=== PATIENT | male | born 1985 | race Caucasian/White ===

== ENCOUNTER 2020-08-12 16:51 | Inpatient (IN) | payer OTHER ==
[~2020-08-12] VITALS: Ht 180.3 cm; Wt 65.0 kg
[2020-08-12] MEDS ORDERED: ACETAMINOPHEN 325 MG TABLET PO PRN (17:15)
[2020-08-12] MEDS ORDERED: MAGNESIUM HYDROXIDE SUSPENSION 30 ML UDCUP PO PRN (17:15)
[2020-08-12 18:48] LABS: COVID AG,FIA SOURCE NASOPHARYNGEAL
[2020-08-12 19:41] LABS: ANION GAP 10 mmol/L (8-16); CALCIUM, TOTAL 9.1 mg/dL (8.8-10.5); CARBON DIOXIDE 28 mmol/L (22-29); CHLORIDE 106 mmol/L (98-107); CREATININE 1.33 mg/dL (0.60-1.30); GLOMERULAR FILTR. RATE CALC > 60 mL/min (>60); GLUCOSE,RANDOM 76 mg/dL (70-110); POTASSIUM 4.3 mmol/L (3.5-5.1); SODIUM SERUM 144 mmol/L (136-145); UREA NITROGEN, BLOOD 23 mg/dL (7-18)
[2020-08-12 19:47] LABS: ALANINE AMINOTRANSFERASE 40 U/L (12-78); ALBUMIN 3.7 g/dL (3.4-5.0); ALKALINE PHOSPHATASE 82 U/L (46-116); ASPARTATE AMINOTRANSFERASE 29 U/L (15-37); BILIRUBIN,TOTAL 0.4 mg/dL (0.1-1.0); TOTAL PROTEIN, SERUM 6.7 g/dL (6.4-8.2)
[2020-08-12 20:56] VITALS: BP 121/72
[2020-08-13 05:09] VITALS: BP 103/66
[2020-08-13 08:04] VITALS: BP 111/71
[2020-08-13 10:27] LABS: AMPHET/METH SCREEN,URINE POSITIVE (NEGATIVE); BARBITURATE SCREEN, URINE NEGATIVE (NEGATIVE); BENZODIAZEPINES SCREEN,URINE NEGATIVE (NEGATIVE); CANNABINOID SCREEN,URINE NEGATIVE (NEGATIVE); COCAINE SCREEN,URINE NEGATIVE (NEGATIVE); METHADONE SCREEN, URINE NEGATIVE (NEGATIVE); OPIATE SCREEN,URINE NEGATIVE (NEGATIVE); PHENCYCLIDINE SCREEN,URINE NEGATIVE (NEGATIVE)
[2020-08-13] MEDS: RisperiDONE 1 MG TABLET PO SCH ×2 (11:00→21:16)
[2020-08-13 19:45] VITALS: BP 106/60
[2020-08-14 03:30] VITALS: BP 92/56
[2020-08-14 07:48] VITALS: BP 113/59
[2020-08-14] MEDS: RisperiDONE 1 MG TABLET PO SCH (09:08)
[2020-08-14] MEDS: LORazepam 1 MG TABLET PO PRN (14:58)
[2020-08-14 19:35] VITALS: BP 134/65
[2020-08-14] MEDS: RisperiDONE 2 MG TABLET PO SCH (20:31)
[2020-08-15 04:00] VITALS: BP 103/52
[2020-08-15 07:30] VITALS: BP 101/59
[2020-08-15] MEDS: RisperiDONE 2 MG TABLET PO SCH ×2 (08:18→20:12)
[2020-08-15] MEDS: LORazepam 1 MG TABLET PO PRN (12:06)
[2020-08-15 20:05] VITALS: BP 114/66
[2020-08-15] MEDS: ZOLPIDEM TARTRATE 5 MG TABLET PO PRN (20:12)
[2020-08-16 04:00] VITALS: BP 107/70
[2020-08-16 08:21] VITALS: BP 101/52
[2020-08-16] MEDS: RisperiDONE 2 MG TABLET PO SCH ×2 (08:39→21:03)
[2020-08-16] MEDS: LORazepam 1 MG TABLET PO PRN ×2 (08:44→18:01)
[2020-08-16 21:00] VITALS: BP 117/64
[2020-08-16] MEDS: ZOLPIDEM TARTRATE 5 MG TABLET PO PRN (21:56)
[2020-08-17 05:21] VITALS: BP 113/61
[2020-08-17] MEDS: LORazepam 1 MG TABLET PO PRN ×2 (05:40→17:17)
[2020-08-17 07:36] VITALS: BP 106/66
[2020-08-17] MEDS: RisperiDONE 2 MG TABLET PO SCH ×2 (08:02→20:28)
[2020-08-17 20:02] VITALS: BP 98/69
[2020-08-17] MEDS: ZOLPIDEM TARTRATE 5 MG TABLET PO PRN (20:28)
[2020-08-18 04:35] VITALS: BP 114/69
[2020-08-18 07:33] VITALS: BP 104/55
[2020-08-18] MEDS: LORazepam 1 MG TABLET PO PRN (08:24)
[2020-08-18] MEDS: RisperiDONE 2 MG TABLET PO SCH ×3 (09:00→20:08)
[2020-08-18 19:44] VITALS: BP 134/81
[2020-08-19 04:47] VITALS: BP 106/70
[2020-08-19 08:37] VITALS: BP 130/91
[2020-08-19] MEDS: DIVALPROEX SODIUM 500 MG ER TABLET PO SCH (09:00)
[2020-08-19] MEDS: RisperiDONE 2 MG TABLET PO SCH ×2 (09:00→20:05)
[2020-08-19] MEDS: LORazepam 1 MG TABLET PO PRN (09:04)
[2020-08-19] MEDS: ZOLPIDEM TARTRATE 5 MG TABLET PO PRN (20:05)
[2020-08-19 21:00] VITALS: BP 117/74
[2020-08-20 04:20] VITALS: BP 98/65
[2020-08-20] MEDS: RisperiDONE 2 MG TABLET PO SCH (08:02)
[2020-08-20] MEDS: DIVALPROEX SODIUM 500 MG ER TABLET PO SCH (08:02)
[2020-08-20 08:35] VITALS: BP 112/84
[2020-08-20] MEDS ORDERED: DIVA-80 PO (10:56)
[2020-08-20] MEDS ORDERED: RISP2TAB45 PO (10:57)
== END 2020-08-20 13:00 | DRG 885 ==
LOC: EMS 16:56 → 6S 17:09
PROVIDERS: ADMIT Internal Medicine; ATTEND Internal Medicine
DX: F29 Unspecified psychosis not due to a substance or known physiological condition (principal); R45.851 Suicidal ideations; Z20.822 Contact with and (suspected) exposure to COVID-19; F15.10 Other stimulant abuse, uncomplicated; F41.9 Anxiety disorder, unspecified
CPT/HCPCS: 80053; 87426; 99285; G0480